=== PATIENT | male | born 1935 | race Caucasian/White ===

== ENCOUNTER 2016-09-22 05:44 | Day surgery (SDC) | payer OTHER ==
[~2016-09-22] VITALS: Ht 182.9 cm; Wt 109.0 kg
--- NOTE | ~2016-09-22 | O ---
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 PROCEDURES: Bilateral lower lid ectropion repair with bilateral transconjunctival lower lid and cheek lift and inferior punctoplasty, both eyes. SURGEON: Avi Beth MD CASER UP: None. ANESTHESIA: Local with IV sedation. COMPLICATIONS: None. 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 He presents today for bilateral lower lid and cheek surgery in order to attempt to improve his ocular surface milieu, level of function, and comfort. Informed consent was obtained to include, but not limited to the potential risk for loss of vision, bleeding, infection, failure to improve the problem, and the potential need for further surgery or treatment. DESCRIPTION OF PROCEDURE: The patient was taken to the operating room where 2% Xylocaine with epinephrine mixed with equal parts of 0.75% Marcaine with Wydase was administered transcutaneously and transconjunctivally to each lower lid, lateral canthus, infratemporal fossa, and cheek. The patient was subsequently prepped and draped in the usual sterile fashion. Attention was first turned to the right lateral canthus, which was clamped with a Carter clamp. A sharp canthotomy and cantholysis was subsequently performed. The inferior punctum was then dilated with a punctum dilator. A one-snip punctoplasty was then performed posteriorly. A transconjunctival incision was then made below the inferior border of the tarsal plate. The dissection was then carried down into the premalar tissues. [address] [address] OPERATIVE REPORT Name: MONA MCKEON Room #: 150-8 [facility]..#: [id number] Admission: 09/22/16 Attend Phys: Avi Beth MD Discharge: Date of : 33 Report #: [id number] The lower lid and cheek tissues were then subsequently elevated and resuspended with interrupted mattress double arm 5-0 chromic sutures. Attention was then returned to the completion of the ectropion repair. The tarsal strip was secured to the internal portion of the lateral orbital tubercle with interrupted 5-0 Prolene sutures. The subcutaneous structures and the skin were then advanced and closed with interrupted 6-0 plain gut sutures. Attention was then turned to the other side where the same procedures were performed. The wounds were then cleaned and dressed with erythromycin ointment and the patient subsequently transported to the recovery area having tolerated the procedures well with no anesthetic or operative complications being noted. By: [id number] Avi Beth MD /nt
[~2016-09-22 05:44] MED LIST: ELIQUIS2.5 MG PO; FINASTERIDE5 MG PO; FLECAINIDE ACE100 MG PO; FLECAINIDE ACET50 M1 PO; LISINOPRIL-HCT1 EAC1 PO; LYRICA 75 MG CA75 MG PO; PREDNISONE 10 M10 MG PO
[2016-09-22 11:47] VITALS: BP 140/78
== END 2016-09-22 13:50 | disposition home or self-care (01) ==
LOC: TBA 05:44 → OR 05:44
DX: H02.102 Unspecified ectropion of right lower eyelid (principal); H02.105 Unspecified ectropion of left lower eyelid; H02.535 Eyelid retraction left lower eyelid; H02.532 Eyelid retraction right lower eyelid; H02.205 Unspecified lagophthalmos left lower eyelid; H02.202 Unspecified lagophthalmos right lower eyelid; H18.9 Unspecified disorder of cornea; I10 Essential (primary) hypertension; G47.33 Obstructive sleep apnea (adult) (pediatric); I48.91 Unspecified atrial fibrillation; Z95.0 Presence of cardiac pacemaker; Z87.891 Personal history of nicotine dependence; Z85.528 Personal history of other malignant neoplasm of kidney; Z85.820 Personal history of malignant melanoma of skin; Z98.890 Other specified postprocedural states
CPT/HCPCS: 50010; 50101; 50386; 50398; 51636; 56527; 56531; 62110; 62850